=== PATIENT | female | born 1995 | race Caucasian/White ===

== ENCOUNTER 2017-06-01 09:19 | Emergency (ER) | payer BC, OTHER ==
[~2017-06-01] VITALS: Ht 167.6 cm; Wt 74.8 kg
[~2017-06-01 09:19] MED LIST: BCPILLS PO
[2017-06-01 09:23] VITALS: TEMP 37; Ht 167.6 cm; Wt 74.8 kg
[2017-06-01] MEDS ORDERED: SODIUM CHLORIDE 0.9% 1000ML 1,000 ML IV STA (09:43)
[2017-06-01 10:13] LABS: BASO % 0.1 %; BASO ABS # 0.01 K/uL (0-0.2); COMPLETE YES; HEMATOCRIT 43.4 % (37-47); IG% 0.2 %; LYMPH % 16.6 %; LYMPH ABS # 1.97 K/uL (1.2-3.4); MEAN CELL VOLUME 89.3 fL (80-100); MEAN CORPUSCULAR HEMOGLOBIN 30.7 pg (25-34); MEAN CORPUSCULAR HGB CONC 34.3 g/dl (32-36); MEAN PLATELET VOLUME 9.8 fL (7.4-10.4); NEUT % 77.1 %; PLATELET COUNT 276 K/uL (130-400); RED BLOOD COUNT 4.86 M/uL (4.2-5.4)
[2017-06-01 10:24] LABS: BUN/CREATININE RATIO 10.4 (10-20); CALCIUM 9.3 mg/dl (8.5-10.1); CREATININE 0.89 mg/dl (0.60-1.20); POTASSIUM 3.4 mmol/L (3.5-5.1)
--- NOTE | 2017-06-01 10:35 | DIAGNOSTIC IMAGING REPORT ---
RENAL ULTRASOUND CLINICAL HISTORY: Right flank pain. Evaluate for hydronephrosis. COMPARISON STUDY: None. TECHNIQUE: Sonography of the kidneys and the urinary bladder was performed. FINDINGS: The right kidney measures 11 x 3.5 x 5.8 cm and the left measures 11.4 x 5 x 4 cm. There is no hydronephrosis. No masses or calculi are identified by sonography. Renal echogenicity, size and cortical thickness are normal. Both ureteral jets are identified. IMPRESSION: Normal renal ultrasound. No hydronephrosis. Electronically signed by: West Willett M.D. 06/01/2017 10:33 AM Dictated Date/Time: 06/01/2017 10:33 AM
[2017-06-01] MEDS ORDERED: KETOROLAC TROMETHAMINE 30 MG/ML VIAL IV STA (10:43)
[2017-06-01 10:47] LABS: URINE APPEARANCE CLEAR (CLEAR); URINE BILIRUBIN NEG (NEG); URINE COLOR YELLOW; URINE EPITHELIAL CELL AUTO 20-30 /lpf (0-5); URINE NITRITE NEG (NEG); URINE PH 7.5 (4.5-7.5); UROBILINOGEN NEG (NEG)
[2017-06-01 10:57] LABS: MANUAL MICROSCOPIC REQUIRED? NO; REVIEW REQ? NO; SULFASALICYLIC ACID NEG (NEG)
[2017-06-01] MEDS ORDERED: CIPROFLOXACIN 500 MG TAB PO STA (11:27)
[2017-06-01] MEDS ORDERED: CIPR-255 PO (11:36)
[2017-06-01 12:02] VITALS: BP 122/76; PULSE 78; O2SAT 99
--- NOTE | 2017-06-01 14:27 | EMERGENCY ROOM VISIT NOTE ---
History Report prepared by Cassidy: Karina Elliott Under the Supervision of: Dr. Héctor Pak M.D. First contact with patient: 09:35 Chief Complaint: URINARY SYMPTOMS Stated Complaint: KIDNEY PAIN Nursing Triage Summary: triage note: pt reports right lower back pain since 299. "i had chills this morning." pt reports "i am going to the bathroom a lot, it feels like i have to go a lot. " pt reports hx of kidney infection "a few years ago and i was treated for a bladder infection in march too." History of Present Illness The patient is a 21 year old female who presents to the Emergency Room with complaints of persistent right flank pain starting 299. The pain woke her from sleep. She describes the pain as sharp and states that she is having kidney pain. She has pain while she is sitting still, but the pain worsens with movement. The pain does not wrap around her side to the front. She reports urinary frequency, but denies dysuria and hematuria. She had some chills and nausea this morning. She denies any vomiting, fever, vaginal discharge, vaginal bleeding. She has had a kidney infection before and states that the pain is similar, but notes that with her previous kidney infection she had a fever unlike today. She has never had a kidney stone, but she has a family history of kidney stones in her mother. She denies any chance of . Source of History: patient Onset: 299 Position: other (right flank) Quality: sharp Timing: other (persistent) Modifying Factors (Worsening): movement Associated Symptoms: + chills, + nausea, No fevers, No vomiting Note: Pt reports urinary frequency. Pt denies hematuria, dysuria, vaginal discharge, vaginal bleeding. Review of Systems See HPI for pertinent positives & negatives. A total of 10 systems reviewed and were otherwise negative. Past Medical & Surgical Medical Problems: (1) No pertinent past surgical history (2) Urinary tract infection Family History Cancer Diabetes mellitus Hypertension Kidney stones Social History Smoking Status: Current Every Day Smoker Alcohol Use: occasionally Housing Status: lives with family Occupation Status: employed Current/Historical Medications Scheduled Control Pills ( Control Pills), 1 TAB PO DAILY Ciprofloxacin Hcl (Cipro), 500 MG PO BID Allergies Coded Allergies: No Known Allergies (Unverified , 05/21/14) Physical Exam Vital Signs Date Time Temp Pulse Resp B/P (MAP) Pulse Ox O2 Delivery O2 Flow Rate FiO2 06/01/17 12:02 78 18 122/76 99 06/01/17 11:19 78 20 120/72 100 Room Air 06/01/17 10:41 95 16 132/80 100 Room Air 06/01/17 09:23 37.0 115 18 130/86 98 Room Air Physical Exam Constitutional: Vital signs reviewed. Eyes: Pupils are equal round reactive to light. Conjunctiva are noninjected. ENT: Pharynx is clear without erythema or exudate. Mucous membranes are moist. Neck supple without meningeal signs. Respiratory: Clear to auscultation bilaterally. Breath sounds are equal bilaterally. Cardiovascular: Regular rate and rhythm. No rubs or gallops. GI: Soft, nondistended and nontender. Bowel sounds are present. Musculoskeletal: No peripheral edema. No lower extremity tenderness. Mild right CVA tenderness. Integumentary: No cyanosis. Neurological: The patient is awake and alert. No focal deficits. Psychiatric: Normal affect. Medical Decision & Procedures ER Provider Diagnostic Interpretation: Radiology results as stated below per my review and the radiologist's interpretation: RENAL ULTRASOUND CLINICAL HISTORY: Right flank pain. Evaluate for hydronephrosis. COMPARISON STUDY: None. TECHNIQUE: Sonography of the kidneys and the urinary bladder was performed. FINDINGS: The right kidney measures 11 x 3.5 x 5.8 cm and the left measures 11.4 x 5 x 4 cm. There is no hydronephrosis. No masses or calculi are identified by sonography. Renal echogenicity, size and cortical thickness are normal. Both ureteral jets are identified. IMPRESSION: Normal renal ultrasound. No hydronephrosis. Electronically signed by: West Willett M.D. 06/01/2017 10:33 AM Dictated Date/Time: 06/01/2017 10:33 AM Laboratory Results 06/01/17 10:00 Red Blood Count 4.86, Mean Corpuscular Volume 89.3, Mean Corpuscular Hemoglobin 30.7, Mean Corpuscular Hemoglobin Concent 34.3, Mean Platelet Volume 9.8, Neutrophils (%) (Auto) 77.1, Lymphocytes (%) (Auto) 16.6, Monocytes (%) (Auto) 6.0, Eosinophils (%) (Auto) 0.0, Basophils (%) (Auto) 0.1, Neutrophils # (Auto) 9.19, Lymphocytes # (Auto) 1.97, Monocytes # (Auto) 0.71, Eosinophils # (Auto) 0.00, Basophils # (Auto) 0.01 06/01/17 10:00 Test 06/01/17 09:50 06/01/17 10:00 Urine Color YELLOW Urine Appearance CLEAR (CLEAR) Urine pH 7.5 (4.5-7.5) Urine Specific [place] 1.010 (1.000-1.030) Urine Protein NEG (NEG) Urine Glucose (UA) NEG (NEG) Urine Ketones NEG (NEG) Urine Occult Blood 2+ (NEG) Urine Nitrite NEG (NEG) Urine Bilirubin NEG (NEG) Urine Urobilinogen NEG (NEG) Urine Leukocyte Esterase LARGE (NEG) Urine WBC (Auto) >30 /hpf (0-5) Urine RBC (Auto) 0-4 /hpf (0-4) Urine Hyaline Casts (Auto) 10-30 /lpf (0-5) Urine Epithelial Cells (Auto) 20-30 /lpf (0-5) Urine Bacteria (Auto) 4+ (NEG) Urine Test NEG (NEG) White Blood Count 11.90 K/uL (4.8-10.8) Red Blood Count 4.86 M/uL (4.2-5.4) Hemoglobin 14.9 g/dL (12.0-16.0) Hematocrit 43.4 % (37-47) Mean Corpuscular Volume 89.3 fL (80-100) Mean Corpuscular Hemoglobin 30.7 pg (25-34) Mean Corpuscular Hemoglobin Concent 34.3 g/dl (32-36) Platelet Count 276 K/uL (130-400) Mean Platelet Volume 9.8 fL (7.4-10.4) Neutrophils (%) (Auto) 77.1 % Lymphocytes (%) (Auto) 16.6 % Monocytes (%) (Auto) 6.0 % Eosinophils (%) (Auto) 0.0 % Basophils (%) (Auto) 0.1 % Neutrophils # (Auto) 9.19 K/uL (1.4-6.5) Lymphocytes # (Auto) 1.97 K/uL (1.2-3.4) Monocytes # (Auto) 0.71 K/uL (0.11-0.59) Eosinophils # (Auto) 0.00 K/uL (0-0.5) Basophils # (Auto) 0.01 K/uL (0-0.2) RDW Standard Deviation 38.9 fL (36.4-46.3) RDW Coefficient of Variation 12.1 % (11.5-14.5) Immature Granulocyte % (Auto) 0.2 % Immature Granulocyte # (Auto) 0.02 K/uL (0.00-0.02) Anion Gap 6.0 mmol/L (3-11) Est Creatinine Clear Calc Drug Dose 101.6 ml/min Estimated GFR () 105.9 Estimated GFR (Non- 91.4 BUN/Creatinine Ratio 10.4 (10-20) Calcium Level 9.3 mg/dl (8.5-10.1) Total Bilirubin 0.3 mg/dl (0.2-1) Direct Bilirubin 0.1 mg/dl (0-0.2) Aspartate Amino Transf (AST/SGOT) 12 U/L (15-37) Alanine Aminotransferase (ALT/SGPT) 17 U/L (12-78) Alkaline Phosphatase 70 U/L (45-117) Total Protein 7.7 gm/dl (6.4-8.2) Albumin 3.9 gm/dl (3.4-5.0) Lipase 87 U/L (73-393) Laboratory results as reviewed by me. Medications Administered Medications (Trade) Dose Ordered Sig/Hue Route Start Time Stop Time Status Last Admin Dose Admin Sodium Chloride 1,000 ml @ 999 mls/hr Q1H1M STAT IV 06/01/17 09:43 06/01/17 10:43 DC 06/01/17 09:43 999 MLS/HR Ketorolac Tromethamine (Toradol Inj) 10 mg NOW STAT IV 06/01/17 10:43 06/01/17 10:45 DC 06/01/17 11:16 10 MG Ciprofloxacin (Cipro Tab) 500 mg NOW STAT PO 06/01/17 11:27 06/01/17 11:28 DC 06/01/17 11:51 500 MG ED Course 0939: The patient was evaluated in room B6. A complete history and physical exam was performed. 0943: NSS 1000 ml @ 999 mls/hr IV. 1043: Toradol Inj 10 mg IV. 1127: Ciprofloxacin 500 mg PO. 1135: Upon reevaluation, the patient appeared to have improvement of her symptoms. I discussed aldo's findings with her. She verbalized agreement of the treatment plan. She was discharged home. Medical Decision This is a 21-year-old female who presents with right flank pain. Differential diagnosis includes pyelonephritis, UTI, strain, renal colic, pancreatitis, duodenitis. I did perform a limited focused review of portions of the patient' s old chart on the electronic medical record. The patient has had no recent pertinent visits to this hospital. I did evaluate the patient as noted above. IV access was established. I did order and personally review the patient's urinalysis and chest x-ray as described above. There is obvious infection. A urine culture was sent. The patient was treated with Cipro. I did order and review the patient's blood work as noted in the electronic medical record. Her white blood cell count is slightly elevated. I did order an ultrasound of the kidneys. I did review the images myself as well as the radiology report as described above. There is no evidence of kidney stone or hydronephrosis. I did treat patient with Toradol IV and normal saline IV. I did discuss the test results with her. I did recommend close follow up with her doctor for further evaluation. I did discharge her with a ten-day prescription for Cipro. Medication Reconcilliation Current Medication List: was personally reviewed by me Blood Pressure Screening Patient's blood pressure: Elevated blood pressure Blood pressure disposition: Elevated BP felt to be situational Impression Primary Impression: Pyelonephritis Scribe Attestation The scribe's documentation has been prepared under my direct and personally reviewed by me in its entirety. I confirm that the note above accurately reflects all work, treatment, procedures, and medical decision making performed by me. Departure Information Dispostion Home / Self-Care Prescriptions Ciprofloxacin Hcl (CIPRO) 500 Mg Tab 500 MG PO BID, #20 TAB Prov: Héctor Pak M.D. 06/01/17 Referrals Ulysses Pierre M.D. (PCP) Forms HOME CARE DOCUMENTATION FORM, IMPORTANT VISIT INFORMATION Patient Instructions My [facility], Pyelonephritis Dc Additional Instructions You have been examined and treated today on an emergency basis only. This is not a substitute for, or an effort to provide, complete comprehensive medical care. It is impossible to recognize and treat all injuries or illnesses in a single emergency department visit. It is therefore important that you follow up closely with your physician. Call as soon as possible for an appointment. Return for worsening symptoms or if you develop fever, vomiting, or any other concerning symptoms.
--- NOTE | 2017-06-03 12:00 | Pharmacy Progress Note ---
ED Pharmacist Culture FollowUp Date of Service: Jun 03, 2017. Patient was sent home with a prescription for ciprofloxacin, which should cover the E. coli growing from the patient's urine culture.
== END 2017-06-01 12:10 | disposition home or self-care (01) ==
LOC: C.EDB 09:22
DX: N12 Tubulo-interstitial nephritis, not specified as acute or chronic (principal); F17.200 Nicotine dependence, unspecified, uncomplicated; Z79.3 Long term (current) use of hormonal contraceptives; Z83.3 Family history of diabetes mellitus; Z82.49 Family history of ischemic heart disease and other diseases of the circulatory system; Z84.1 Family history of disorders of kidney and ureter

== ENCOUNTER 2018-03-07 14:47 | Emergency (ER) | payer OTHER ==
[~2018-03-07] VITALS: Ht 167.6 cm; Wt 74.2 kg
[~2018-03-07 14:47] MED LIST changes: +CIPR-255 PO
[2018-03-07 14:48] VITALS: TEMP 36.9
[2018-03-07 14:50] VITALS: O2SAT 100
[2018-03-07] MEDS ORDERED: LORAZEPAM 1 MG TAB PO STA (15:08)
[2018-03-07] MEDS ORDERED: ALBUT/IPRATROP 3MG/0.5MG NEB 3 ML VIAL INH STA (15:08)
--- NOTE | 2018-03-07 15:09 | EMERGENCY ROOM VISIT NOTE ---
History Report prepared by Cassidy: Fátima Ramirez Under the Supervision of: Dr. Aleksandr Danielson M.D. 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 Positive nausea. Negative cough, fevers, chills, vomiting, leg swelling, recent long car or plane travel, recent foreign travel. She states she was simply riding in the car when her chest pain suddenly began. Her chest pain is resolved and she has never had an episode like this before. She notes her heart was fluttering and racing and her legs began cramping and tensing. She states she is trying to buy a home but denies any other stresses. Her LNMP was 2 weeks ago. She is a current smoker. The patient states she was recently seen at the ED as an outpatient for a kidney infection. 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 A total of ten systems were reviewed and were otherwise negative. Past Medical & Surgical Medical Problems: (1) Heart murmur (2) No pertinent past surgical history (3) Urinary tract infection Family History Cancer Diabetes mellitus Hypertension Kidney stones Social History Smoking Status: Current Every Day Smoker Alcohol Use: occasionally Housing Status: lives with family Occupation Status: employed Current/Historical Medications Scheduled Control Pills ( Control Pills), 1 TAB PO QPM Scheduled PRN Hydroxyzine Hcl (Atarax), 25 MG PO TID PRN for Anxiety Allergies Coded Allergies: No Known Allergies (Unverified , 03/07/18) Physical Exam Vital Signs Date Time Temp Pulse Resp B/P (MAP) Pulse Ox O2 Delivery O2 Flow Rate FiO2 03/07/18 17:53 86 15 111/65 99 Room Air 03/07/18 16:55 88 17 128/77 100 Room Air 03/07/18 15:27 Room Air 03/07/18 15:12 107 03/07/18 14:50 100 Nasal Cannula 2.0 03/07/18 14:50 100 Nasal Cannula 2.0 03/07/18 14:48 36.9 145 28 152/89 98 Room Air Physical Exam GENERAL: Awake, alert, well-appearing, tearful, in mild distress HENT: Normocephalic, atraumatic. EYES: Normal conjunctiva. Sclera non-icteric. PERRL. No anisocoria. NECK: Supple. No nuchal rigidity. FROM. RESPIRATORY: CTAB, no rhonchi, wheezing, crackles CARDIAC: Tachycardic but regular, no MRG ABDOMEN: Soft, NTND, BS+ MSK: No chest wall TTP, no LE edema. Negative Homans's sign NEURO: GCS 15, CN 2-12 intact, moves all 4s on command SKIN: No rash or jaundice noted. Medical Decision & Procedures ER Provider Diagnostic Interpretation: Radiology results as stated below per my review and radiologist interpretation: SINGLE VIEW CHEST CLINICAL HISTORY: Dyspnea. FINDINGS: An AP, portable, upright chest radiograph is obtained. No prior studies are available for comparison at the time of dictation. The cardiomediastinal silhouette is unremarkable. The lungs and pleural spaces are clear. No pneumothorax is seen. The bony thorax is grossly intact. IMPRESSION: No active disease in the chest. Electronically signed by: Freedom Neely M.D. 03/07/2018 3:28 PM Laboratory Results 03/07/18 15:15 Red Blood Count 4.83, Mean Corpuscular Volume 87.0, Mean Corpuscular Hemoglobin 30.6, Mean Corpuscular Hemoglobin Concent 35.2, Mean Platelet Volume 9.8, Neutrophils (%) (Auto) 61.8, Lymphocytes (%) (Auto) 33.3, Monocytes (%) (Auto) 4.1, Eosinophils (%) (Auto) 0.5, Basophils (%) (Auto) 0.1, Neutrophils # (Auto) 7.62, Lymphocytes # (Auto) 4.11, Monocytes # (Auto) 0.51, Eosinophils # (Auto) 0.06, Basophils # (Auto) 0.01 03/07/18 15:15 Test 03/07/18 15:15 White Blood Count 12.33 K/uL (4.8-10.8) Red Blood Count 4.83 M/uL (4.2-5.4) Hemoglobin 14.8 g/dL (12.0-16.0) Hematocrit 42.0 % (37-47) Mean Corpuscular Volume 87.0 fL (80-100) Mean Corpuscular Hemoglobin 30.6 pg (25-34) Mean Corpuscular Hemoglobin Concent 35.2 g/dl (32-36) Platelet Count 355 K/uL (130-400) Mean Platelet Volume 9.8 fL (7.4-10.4) Neutrophils (%) (Auto) 61.8 % Lymphocytes (%) (Auto) 33.3 % Monocytes (%) (Auto) 4.1 % Eosinophils (%) (Auto) 0.5 % Basophils (%) (Auto) 0.1 % Neutrophils # (Auto) 7.62 K/uL (1.4-6.5) Lymphocytes # (Auto) 4.11 K/uL (1.2-3.4) Monocytes # (Auto) 0.51 K/uL (0.11-0.59) Eosinophils # (Auto) 0.06 K/uL (0-0.5) Basophils # (Auto) 0.01 K/uL (0-0.2) RDW Standard Deviation 39.4 fL (36.4-46.3) RDW Coefficient of Variation 12.2 % (11.5-14.5) Immature Granulocyte % (Auto) 0.2 % Immature Granulocyte # (Auto) 0.02 K/uL (0.00-0.02) Prothrombin Time 9.7 SECONDS (9.0-12.0) Prothromb Time International Ratio 0.9 (0.9-1.1) Activated Partial Thromboplast Time 23.2 SECONDS (21.0-31.0) Partial Thromboplastin Ratio 0.9 Anion Gap 12.0 mmol/L (3-11) Est Creatinine Clear Calc Drug Dose 88.5 ml/min Estimated GFR () 90.2 Estimated GFR (Non- 77.9 BUN/Creatinine Ratio 12.0 (10-20) Calcium Level 9.4 mg/dl (8.5-10.1) Troponin I < 0.015 ng/ml (0-0.045) Laboratory results reviewed by me Medications Administered Medications (Trade) Dose Ordered Sig/Hue Route Start Time Stop Time Status Last Admin Dose Admin Albuterol/ Ipratropium (Duoneb) 3 ml NOW STAT INH 03/07/18 15:08 03/07/18 15:10 DC 03/07/18 15:40 3 ML Sodium Chloride 1,000 ml @ 999 mls/hr Q1H1M STAT IV 03/07/18 16:39 03/07/18 17:39 DC 03/07/18 16:45 999 MLS/HR Miscellaneous Information (Nursing Verbal Med Order) 1 ea ONE ONCE N/A 03/07/18 16:45 03/07/18 16:46 DC 03/07/18 16:52 1 EA Lorazepam (Ativan Tab) 0.5 mg STK-MED ONCE .ROUTE 03/07/18 16:48 03/07/18 16:49 DC 03/07/18 16:51 0.5 MG ECG Per My Interpretation Indication: SOB/dyspnea Rate (beats per minute): 93 Rhythm: normal sinus Findings: other (normal intervals, right axis deviation, no STS changes or TWI) ED Course 1500: The patient was evaluated in room C8. A complete history and physical exam was performed. 1625: I reevaluated the patient at this time. I also performed a bedside ultrasound at this time and there were no significant findings. 1800: I reevaluated the patient. Discussed results and discharge instructions: She verbalized understanding and agreement. The patient is ready for discharge. 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 Positive nausea. Negative cough, fevers, chills, vomiting, leg swelling, recent long car or plane travel, recent foreign travel. Nursing notes reviewed. Ancillary studies and prior records reviewed. Differential diagnosis: Etiologies such as cardiac ischemia, aortic dissection, pulmonary embolism, pneumonia, pneumothorax, musculoskeletal, infections, pericarditis, myocarditis , esophageal rupture, gastrointestinal, as well as others were entertained. She was seen and evaluated the bedside. Patient was complaining of some chest pain and palpitations ongoing 1 hour prior to arrival. Patient states she was driving. No exertional symptoms. Patient denies any infectious symptoms. Patient is a smoker and does use oral contraceptives. Patient denies any calf pain or lower extremity swelling. Patient did have blood work completed along with an EKG, troponin, chest x-ray. Patient's chest x-ray was clear. No evidence of consolidation or pleural effusion. Patient's EKG did show some right axis deviation and borderline tachycardia. The patient did not show evidence of other right-sided heart strain like T-wave inversions in the anterior leads. Patient's blood work did not show any anemia. Patient has normal white blood cell count. Normal kidney function. The patient did have some intermittent tachycardia. I did perform a bedside ultrasound which showed good squeeze and no pericardial effusion. The patient did not have any septal bowing indicative of very high right-sided pressures i.e. pulmonary disease, pulmonary hypertension, or disease. The patient's IVC was virtually collapsible with inspiration. This leads me to believe that the patient is likely dehydrated and that this played a part into her tachycardia. The patient did receive IV fluids as well as some Ativan as I thought that this may be more related to some anxiety and dehydration. Troponins negative. No ischemic change no overt arrhythmia. The patient did have some mild hyperkalemia. Patient was informed of this and was told to increases in her diet. After reassessment after given IV fluids as well as the Ativan the patient was feeling much improved. Patient was given some hydroxyzine for home. Heart score less than 4 less likely ACS. The patient is PE RC positive but her wells score is 1.5 less likely PE and in light of patient's collapsible IVC and no evidence of any right-sided heart strain on her bedside echocardiogram. Also the patient's symptoms improved with IV fluids and Ativan. Patient was deemed suitable for outpatient follow-up and treatment at this time. Patient was given strict follow-up, discharge, and return precautions. All questions were answered. Patient was deemed suitable for outpatient follow-up at this time. Patient agreed with the plan of care and was safely discharged home. Medication Reconcilliation Current Medication List: was personally reviewed by me Blood Pressure Screening Patient's blood pressure: Elevated blood pressure Blood pressure disposition: Elevated BP felt to be situational Impression Primary Impression: SOB (shortness of breath) on exertion Additional Impressions: Dehydration Panic attack Hypokalemia Scribe Attestation The scribe's documentation has been prepared under my direction and personally reviewed by me in its entirety. I confirm that the note above accurately reflects all work, treatment, procedures, and medical decision making performed by me. Departure Information Dispostion Home / Self-Care Prescriptions Hydroxyzine Hcl (ATARAX) 25 Mg Tab 25 MG PO TID Y for Anxiety, #10 TAB Prov: Aleksandr Danielson M.D. 03/07/18 Referrals Ulysses Pierre M.D. (PCP) Forms HOME CARE DOCUMENTATION FORM, IMPORTANT VISIT INFORMATION, WORK / SCHOOL INSTRUCTIONS Patient Instructions ED Dyspnea Shortness of Breath, My [facility] Additional Instructions Please return to the emergency department if you have worsening or recurrent symptoms not amenable to at-home treatment. Please call for a follow-up appointment with her primary care physician. Please take your medications as prescribed. If you have other concerns and/or complaints please feel free to also call your primary care physician's office or return the ED for further evaluation, management, and treatment. You may take 800 mg Ibuprofen every 6 hours as needed for pain/fever with food unless told by your physician not to take NSAIDs. You may take tylenol 1000 mg every 6 hours as needed for pain/fever unless told by your physician to not take it or have liver problems. You may take motrin and tylenol separately or at the same time. Take your medications as prescribed. You have been examined and treated today on an emergency basis only. This is not a substitute for, or an effort to provide, complete comprehensive medical care. It is impossible to recognize and treat all injuries or illnesses in a single emergency department visit. It is therefore important that you follow up closely with [facility], your PCP, and/or your specialist(s). Call as soon as possible for an appointment. Thank you for your time and consideration. I look forward to speaking with you again soon. Please don't hesitate to call us if you have any questions. Problem Qualifiers
[2018-03-07 15:27] VITALS: Ht 167.6 cm; Wt 74.2 kg
--- NOTE | 2018-03-07 15:29 | DIAGNOSTIC IMAGING REPORT ---
SINGLE VIEW CHEST CLINICAL HISTORY: Dyspnea. FINDINGS: An AP, portable, upright chest radiograph is obtained. No prior studies are available for comparison at the time of dictation. The cardiomediastinal silhouette is unremarkable. The lungs and pleural spaces are clear. No pneumothorax is seen. The bony thorax is grossly intact. IMPRESSION: No active disease in the chest. Electronically signed by: Freedom Neely M.D. 03/07/2018 3:28 PM Dictated Date/Time: 03/07/2018 3:27 PM
[2018-03-07 15:49] LABS: BASO % 0.1 %; BASO ABS # 0.01 K/uL (0-0.2); EOS % 0.5 %; EOS ABS # 0.06 K/uL (0-0.5); HEMOGLOBIN 14.8 g/dL (12.0-16.0); IG# 0.02 K/uL (0.00-0.02); LYMPH % 33.3 %; LYMPH ABS # 4.11 K/uL (1.2-3.4); MEAN CORPUSCULAR HEMOGLOBIN 30.6 pg (25-34); MEAN CORPUSCULAR HGB CONC 35.2 g/dl (32-36); MEAN PLATELET VOLUME 9.8 fL (7.4-10.4); MONO % 4.1 %; MONO ABS # 0.51 K/uL (0.11-0.59); NEUT % 61.8 %; NEUT ABS # 7.62 K/uL (1.4-6.5); PLATELET COUNT 355 K/uL (130-400); RED CELL DISTRIBUTION WIDTH CV 12.2 % (11.5-14.5); RED CELL DISTRIBUTION WIDTH SD 39.4 fL (36.4-46.3); WHITE BLOOD COUNT 12.33 K/uL (4.8-10.8)
[2018-03-07 15:59] LABS: INR 0.9 (0.9-1.1); PTT PATIENT 23.2 SECONDS (21.0-31.0)
[2018-03-07 16:11] LABS: BLOOD UREA NITROGEN 12 mg/dl (7-18); CALCIUM 9.4 mg/dl (8.5-10.1); CARBON DIOXIDE 21 mmol/L (21-32); CREATININE 1.01 mg/dl (0.60-1.20); GLUCOSE 108 mg/dl (70-99); SODIUM 138 mmol/L (136-145)
[2018-03-07] MEDS ORDERED: SODIUM CHLORIDE 0.9% 1000ML 1,000 ML IV STA (16:39)
[2018-03-07] MEDS ORDERED: LORAZEPAM 2 MG/ML 1 ML VIAL IV STA (16:39)
[2018-03-07] MEDS ORDERED: NURSING VERBAL MED ORDER ONE (16:45)
[2018-03-07] MEDS ORDERED: LORAZEPAM 0.5 MG TAB ONE (16:48)
[2018-03-07] MEDS ORDERED: HYDR-3124 PO (17:41)
[2018-03-07 17:53] VITALS: BP 111/65; PULSE 86; O2SAT 99
== END 2018-03-07 18:00 | disposition home or self-care (01) ==
LOC: C.EDB 14:47 → C.EDC 18:00
DX: E86.0 Dehydration (principal); F41.0 Panic disorder [episodic paroxysmal anxiety]; E87.6 Hypokalemia; R06.02 Shortness of breath; F17.200 Nicotine dependence, unspecified, uncomplicated; Z79.3 Long term (current) use of hormonal contraceptives; Z86.79 Personal history of other diseases of the circulatory system

== ENCOUNTER 2024-06-08 07:27 | Inpatient (IN) ==
[2024-06-08] MEDS ORDERED: CALCIUM CARBONATE 500 MG CHEWABLE TAB PO PRN (08:11)
[2024-06-08] MEDS ORDERED: LIDOCAINE 1% LOCAL 20 ML VIAL INFIL PRN (08:11)
[2024-06-08] MEDS ORDERED: ACETAMINOPHEN 325 MG TAB PO PRN (08:11)
[2024-06-08 09:00] LABS: Hematocrit (blood only) 38.3 % (37.0-47.0); Mean Corpuscular Hemoglobin 30.2 pg (25.0-34.0); Mean Corpuscular Hgb Conc 33.9 g/dL (32.0-36.0); Mean Corpuscular Volume 88.9 fL (80.0-100.0); Mean Platelet Volume 10.6 fL (9.4-12.4); Platelet Count 194 K/uL (130-400); RDW Coefficient of Variation 13.2 % (11.5-14.5); Red Blood Count 4.31 M/uL (4.20-5.40); White Blood Count 9.39 K/ul (4.8-10.8)
--- NOTE | 2024-06-08 09:26 | History & Physical Report ---
Date of Service June 08, 2024 Assessment & Plan (1) with 39 completed weeks gestation: Plan: 28-year-old G1, P0 at 39 weeks and 4 days of gestation presenting today for scheduled active labor at term, Vital signs stable afebrile, GBS negative, heart rate reassuring, [place] shows contractions but patient does not feel them, Plan to admit, monitor, labs, Cervidil for cervical ripening, All questions were answered. (2) Anxiety: Admission and Anticipated Discharge Date Admission Date: June 08, 2024 History of Present Illness Primary Care Provider: Ulysses Pierre Patient is a 28-year-old G1, P0 at 39 weeks and 4 days of gestation who was scheduled for induction of labor at term she has no complaints, she denies contraction, leakage of fluid, vaginal bleeding. She reports good movements. Her has been uncomplicated except anxiety for which she sees counselor, has not been on medications. GBS negative Allergies Allergy/AdvReac Type Severity Reaction Status Date / Time No Known Allergies Allergy Verified 06/08/24 09:24 Home Medications Medication Instructions Recorded Confirmed Type [id number]-[id number] 1 mg 1 tab PO DAILY 06/08/24 06/08/24 History tablet Patient History Medical History Anxiety was on lexapro weaned off while Surgical History History of oral surgery Family History Grandfather (Maternal) Diabetes Social History Smoking Status: Former smoker Hx Alcohol Use: No Hx Substance Use: No Preferred Language: Portuguese Certified Technician Required: No Beliefs That Will Affect Care: None marital status: marital status details: Wiley Funez Current Living Situation: Spouse Current Living Situation Comment: lives with current occupational status: employed current occupation: [employer] Feels Safe at Home: Yes Assistive Devices: None ARC TRIMMER History no history of STDs, no history of chlamydia, gonorrhea, herpes Review of Systems as per Subjective / HPI Physical Exam Constitutional: WD/WN, vitals as above Gastrointestinal (Abdomen): normal bowel sounds, soft, nontender, no hepatosplenomegaly Genitourinary: normal external appearance OB Exam Abdomen: + vertex (co nfirmed with bed side US) Manual OB Exam: + cervical dilation (0), + cervical effacement 20% and + station high OB Exam Monitor Tracing: + external uterine monitor used and + category I Lymphatic: US: vertex, AFV adequate, placenta anterior, multile FM's and breathing seen Results & Data Vital Signs (Past 12 Hours) Vital Signs Temp Pulse Resp BP 06/08/24 07:51 36.8 C 18 06/08/24 07:48 120 H 130/85
[2024-06-08] MEDS: DINOPROSTONE 10 MG INSERT PV ONE (10:03)
--- NOTE | 2024-06-08 16:08 | Obstetrical Progress Note ---
Date of Service June 08, 2024 Assessment & Plan Admission and Anticipated Discharge Date Admission Date: June 08, 2024 Subjective Patient is reevaluated. She started to feel contractions, they feel like tightening with mild pain, / No LOF/VB +FM FHR categ I [place] ctxs q 2-4 min Continue to monitor closely Results & Data Vital Signs (Past 12 Hours) Vital Signs Temp Pulse Resp BP 06/08/24 14:31 100 H 133/74 06/08/24 12:03 95 H 143/82 H 06/08/24 12:01 18 06/08/24 12:01 36.9 C 18 06/08/24 07:51 36.8 C 18 06/08/24 07:48 120 H 130/85
[2024-06-08] MEDS: LACTATED RINGER'S 1,000 ML IV PRN (18:37)
[2024-06-08] MEDS: BUTORPHANOL TARTRATE 2 MG/ML VIAL IV PRN (18:37)
[2024-06-08] MEDS: ONDANSETRON INJ 2 MG/ML 2 ML VIAL ONE (20:12)
--- NOTE | 2024-06-09 00:19 | Obstetrical Progress Note ---
Date of Service June 09, 2024 Assessment & Plan Admission and Anticipated Discharge Date Admission Date: June 08, 2024 Subjective Patient took shower and ate dinner after Cervidil was removed at 10 pm last night She feels more intense contractions, pain level 4/10 She took Stadol earlier and it helped for 2 hours but made her nauseous Desires IV Tylenol for pain VSS Afebrile FHR categ I VE; 1/ 50%/ -3, amniotic bag felt [place] ctxs q 3-4 min Discussed the findings and options 1) continue with cervical ripening with PO Cytotec when these contractions will space out 2) Pedro balloon insertion for mechanical dilatation with low dose Oxytocin Patient understands all and desires 2nd option All questions were answered. Results & Data Vital Signs (Past 12 Hours) Vital Signs Temp Pulse Resp BP 06/08/24 22:04 101 H 132/73 06/08/24 19:10 36.8 C 18 06/08/24 18:58 36.8 C 109 H 18 131/81 06/08/24 14:31 100 H 133/74
[2024-06-09] MEDS: ACETAMINOPHEN 1,000 MG/100 ML VIAL IV PRN (00:43)
--- NOTE | 2024-06-09 01:13 | Obstetrical Progress Note ---
Date of Service June 09, 2024 Assessment & Plan Admission and Anticipated Discharge Date Admission Date: June 08, 2024 Subjective Patient is ready for Pedro ballon She received IV Tylenol and Zofran She has h/o anxiety and has not been on meds since she had been , used to be on Lexapro She sees counselor regularly every week She desires Benadryl to sleep Speculum was placed in vagina, cervix was visualized, cleaned with betadine sticks Pedro tip was inserted and inflated with 35 ml of sterile water, attached to medial thigh with minimal tension Patient tolerated the procedure well. Results & Data Vital Signs (Past 12 Hours) Vital Signs Temp Pulse Resp BP 06/09/24 00:54 99 H 134/78 06/08/24 22:04 101 H 132/73 06/08/24 19:10 36.8 C 18 06/08/24 18:58 36.8 C 109 H 18 131/81 06/08/24 14:31 100 H 133/74
[2024-06-09] MEDS: FLUCONAZOLE 50 MG TAB PO ONE (01:18)
[2024-06-09] MEDS: diphenhydrAMINE 50 MG/ML VIAL IV STA (01:20)
[2024-06-09] MEDS ORDERED: NALOXONE HCL 1 MG in SODIUM CHLORIDE 0.9% 1,000 ML IV PRN (02:05)
[2024-06-09] MEDS ORDERED: ePHEDrine sulfate 50 MG/ML AMP IV PRN (02:05)
[2024-06-09] MEDS ORDERED: ROPIVACAINE 0.5% PF 5 MG/ML 20 ML VIAL EPI PRN (02:05)
[2024-06-09] MEDS ORDERED: NALOXONE HCL 0.4 MG/1 ML VIAL/CARP IV PRN (02:05)
[2024-06-09] MEDS ORDERED: diphenhydrAMINE 50 MG/ML VIAL IV PRN (02:05)
[2024-06-09] MEDS ORDERED: LIDOCAINE 2% MPF LOCAL 5 ML VIAL EPI PRN (02:05)
[2024-06-09] MEDS ORDERED: ONDANSETRON INJ 2 MG/ML 2 ML VIAL IV PRN (02:05)
[2024-06-09] MEDS ORDERED: NALBUPHINE HCL 5 MG in SYRINGE 0 ML IV PRN (02:05)
[2024-06-09] MEDS ORDERED: SODIUM CHLORIDE 0.9% PF INJ 10 ML VIAL EPI PRN (02:05)
--- NOTE | 2024-06-09 02:07 | Anesthesiology Consultation ---
Date of Service June 09, 2024 Assessment & Plan (1) Encounter for pre-operative examination: Chart Review Chart Review: Patient NOT seen in Pre Admission Testing and Acceptable Risk for Labor Epidural Consults Requested none History Height/Weight Height: 5 ft 6 in Weight: 98.883 kg Allergies Allergy/AdvReac Type Severity Reaction Status Date / Time No Known Allergies Allergy Verified 06/08/24 09:24 Medications Home Medications Medication Instructions Recorded Confirmed Last Taken artfqabu-[id number]-Hi-FA 1 mg 1 tab PO DAILY 06/08/24 06/08/24 Unknown tablet Active Medications Generic Name Dose Route Start Last Admin Trade Name Freq PRN Reason Stop Dose Admin Butorphanol Tartrate 1 mg 06/08/24 10:05 06/08/24 18:37 Butorphanol Tartrate 2 Mg/Ml Vial IV 07/08/24 10:04 1 mg Q2H PRN Administration Pain Lactated Ringer's 1,000 mls @ 150 mls/hr 06/08/24 08:11 06/09/24 01:35 Lr IV 06/10/24 08:10 150 mls/hr .Q6H40M PRN Administration L&D Protocol Protocol Acetaminophen 1,000 mg in 100 mls @ 400 mls/hr 06/09/24 00:15 06/09/24 00:58 Ofirmev IV 06/12/24 00:14 Infused Q8H PRN Infusion Pain Past Medical History Medical History (Updated 06/09/24 @ 02:07 by Zaheer Martínez MD) Encounter for pre-operative examination Anxiety was on lexapro weaned off while Past Family History Family History Grandfather (Maternal) Diabetes Past Surgical History Surgical History History of oral surgery Social History Smoking Status: Former smoker Hx Alcohol Use: No Hx Substance Use: No substance use type: does not use Physical Exam Vital Signs Last Vital Signs Temp 36.8 C 06/08/24 19:10 Pulse 116 H 06/09/24 02:28 Resp 18 06/09/24 02:00 BP 137/79 06/09/24 02:28 Pulse Ox 96 06/09/24 02:27 Testing Laboratory Results 06/08/24 08:33 Blood Type O Positive 06/08/24 08:33 Antibody Screen NEGATIVE 06/08/24 08:33
[2024-06-09] MEDS: BUPIVACAINE 0.25% PF 30 ML VIAL EPI PRN (02:36)
[2024-06-09] MEDS: LIDOCAINE 2%/EPINEPHRINE 1:200,000 20 ML PF EPI STA (02:36)
[2024-06-09] MEDS: fentaNYL citrate PF 100 MCG/2 ML VIAL EPI PRN (02:37)
[2024-06-09] MEDS: fentANYL 2 MCG/ML BUPIVacaine 0.125%-NSS 100ML BAG EPI PRN (02:37)
[2024-06-09] MEDS: OXYTOCIN 30 UNITS/NSS 30 UNITS/500 ML BAG IV PRN ×2 (03:03→21:12)
[2024-06-09] MEDS: ePHEDrine sulfate 50 MG/ML AMP ONE (05:25)
[2024-06-09] MEDS: BUPIVACAINE 0.25% PF 30 ML VIAL ONE (05:25)
[2024-06-09] MEDS: fentaNYL citrate PF 100 MCG/2 ML VIAL ONE (05:25)
[2024-06-09] MEDS: fentANYL 2 MCG/ML BUPIVacaine 0.125%-NSS 100ML BAG ONE (05:26)
[2024-06-09] MEDS: fentaNYL citrate PF 100 MCG/2 ML VIAL EPI STA (05:26)
[2024-06-09] MEDS: BUPIVACAINE 0.25% PF 30 ML VIAL EPI STA (05:26)
[2024-06-09] MEDS: SODIUM CHLORIDE 0.9% PF INJ 10 ML VIAL EPI STA (05:26)
[2024-06-09] MEDS: LIDOCAINE 2%/EPINEPHRINE 1:200,000 20 ML PF ONE (05:26)
[2024-06-09] MEDS: SODIUM CHLORIDE 0.9% PF INJ 10 ML VIAL ONE (05:26)
[2024-06-09] MEDS: ONDANSETRON INJ 2 MG/ML 2 ML VIAL IV PRN (11:58)
[2024-06-09] MEDS ORDERED: NURSING L&D Epidural Breakthrough Pain Update ONE (18:05)
[2024-06-09] MEDS ORDERED: GENTAMICIN CONSULT ACTIVE PRN (19:02)
[2024-06-09] MEDS ORDERED: AMPICILLIN 2,000 MG in SODIUM CHLORIDE 0.9% 50 ML IV SCH (19:15)
[2024-06-09] MEDS: AMPICILLIN 2,000 MG in SODIUM CHLOR 0.9% MINI-B 100 ML IV SCH (19:48)
[2024-06-09] MEDS: DEXTROSE 5% IV STA (20:25)
[2024-06-09] MEDS: GENTAMICIN SULFATE IV STA (20:25)
[2024-06-09] MEDS: METHYLERGONOVINE MALEATE 0.2 MG/ML AMP IM ONE (20:53)
[2024-06-09] MEDS: miSOPROStoL 200 MCG TAB PR ONE (21:12)
[2024-06-09] MEDS ORDERED: OXYTOCIN 30 UNITS/NSS 30 UNITS/500 ML BAG IV PRN (21:17)
[2024-06-09] MEDS ORDERED: bisacodyL 10 MG SUPP PR PRN (21:17)
[2024-06-09] MEDS ORDERED: ACETAMINOPHEN 325 MG TAB PO PRN (21:17)
[2024-06-09] MEDS ORDERED: HYDROCORTISONE ACETATE 25 MG SUPP PR PRN (21:17)
--- NOTE | 2024-06-09 21:20 | Delivery Summary ---
Vaginal Delivery Summary Date of Service June 09, 2024 Vaginal Delivery Summary DELIVERY NOTE Patient delivered a live in left occiput anterior presentation there was no nuchal cord which was easily reduced. was delivered and placed on mother's abdomen. C clamping was performed. Cord blood is obtained Cord gasses are obtained Meconium is absent Placenta is spontaneously delivered. Placenta appears grossly normal and has 3 vessel cord Inspection of the perineum showed a second-degree midline laceration. Laceration is repaired in layers with 2-0 Vicryl in layers Rectal exam post repair showed good sphincter tone no sutures palpated in the rectum. Quantitative blood loss is 260cc per Infants weight and scores are in the pediatric record Mother and baby are stable in in the recovery
--- NOTE | 2024-06-09 21:29 | Anesthesia Procedure Note ---
Date of Service June 09, 2024 Anesthesia Post Epidural Note Vital Signs Vital Signs: Temp Pulse Resp BP Pulse Ox 99.9 F H 103 H 18 132/62 94 06/09/24 19:35 06/09/24 21:23 06/09/24 19:35 06/09/24 21:23 06/09/24 21:23 Pain Intensity Lower Abdomen: Pain Intensity: 2 Notes Mental Status: alert / awake / arousable and participated in evaluation Nausea / Vomiting: adequately controlled Pain: adequately controlled Airway Patency, RR, SpO2: stable & adequate BP & HR: stable & adequate Hydration State: stable & adequate Neuraxial Anesthesia: was administered and sensory block is resolving Anesthetic Complications: no major complications apparent and Pt Satisfied with anesthetic care Epidural: Removed without complications and With tip intact
[2024-06-09 21:43] LABS: Base Excess Cord Arterial Bld -5.2 mEq/L (-9-1.8); CO2 Cord Arterial Blood 40 mmHg (39.1-73.5); HCO3 Cord Arterial Blood 21 mmol/L (19.7-28.5); Oxygen Sat Cord Arterial Blood 61.1 % (<60); PO2 Cord Arterial Blood 35 mmHg (4.1-31.7); pH Cord Arterial Blood 7.32 (7.1-7.38)
[2024-06-09] MEDS: DIPHTHER/TETAN/PERTUS Vaccine (Tdap, Adol/Adult) 0.5mL IM ONE (21:44)
[2024-06-09] MEDS ORDERED: SODIUM CHLORIDE 0.9% 250 ML IV PRN (22:11)
[2024-06-09] MEDS: IBUPROFEN 600 MG TAB PO PRN (22:49)
[2024-06-09] MEDS: BENZOCAINE 20% SPRY 85 APPLN/85 GM CAN EXT PRN (22:49)
[2024-06-10 06:57] LABS: Hematocrit (blood only) 34.3 % (37.0-47.0); Hemoglobin 11.4 g/dl (12.0-16.0); Mean Corpuscular Hemoglobin 30.2 pg (25.0-34.0); Mean Corpuscular Hgb Conc 33.2 g/dL (32.0-36.0); Mean Platelet Volume 10.7 fL (9.4-12.4); Platelet Count 153 K/uL (130-400); RDW Coefficient of Variation 13.3 % (11.5-14.5); RDW Standard Deviation 43.8 fL (36.4-46.3); Red Blood Count 3.77 M/uL (4.20-5.40); White Blood Count 13.93 K/ul (4.8-10.8)
[2024-06-10] MEDS: PRENATAL VITAMIN 1 TAB PO SCH (07:35)
[2024-06-10] MEDS: DOCUSATE SODIUM 100 MG CAP PO SCH (07:35)
--- NOTE | 2024-06-10 09:43 | Pharmacy Report ---
Pharmacy PK ABX Note - Date of Service June 10, 2024 - Assessment and Plan Assessment 28 year old F receiving gentamicin and ampicillin for treatment of intrapartum chorioamnionitis. Pertinent microbiologic data includes: none. Day # 1 of antimicrobial therapy. Plan Gentamicin * Loading dose: 490 mg IV x 1 * Maintenance dose: 490 mg IV every 24 hours for a single dose * Will obtain levels if continued > 72 hours Pharmacy will continue to follow and will adjust dose/frequency as necessary. Thank you.
--- NOTE | 2024-06-10 10:05 | Obstetrical Progress Note ---
Date of Service June 10, 2024 Assessment & Plan Admission and Anticipated Discharge Date Admission Date: June 08, 2024 OB Progress Note abdomen soft and non tender no calf tenderness ambulating well afebrile on ampicillin and gentamicin vaginal bleeding scant hgb 11.4 wbc 14.000 Results & Data Vital Signs (Past 12 Hours) Vital Signs Temp Pulse Pulse Resp BP BP Pulse Ox 06/10/24 07:35 06/10/24 07:35 36.5 C 87 18 110/71 97 06/10/24 03:30 36.6 C 79 20 127/76 96 06/10/24 00:00 36.8 C 93 H 20 134/81 96 06/09/24 23:13 101 H 143/75 H 06/09/24 23:03 102 H 143/74 H 06/09/24 22:53 96 H 127/70 06/09/24 22:43 98 H 136/80 06/09/24 22:38 96 H 96 06/09/24 22:33 96 06/09/24 22:33 96 H 06/09/24 22:33 96 H 121/70 06/09/24 22:28 93 H 96 06/09/24 22:23 98 06/09/24 22:23 93 H 06/09/24 22:23 90 133/74 06/09/24 22:18 86 95 06/09/24 22:13 89 131/72 95 06/09/24 22:08 93 H 96 O2 Del Method 06/10/24 07:35 Room Air 06/10/24 07:35 Room Air 06/10/24 03:30 Room Air 06/10/24 00:00 Room Air 06/09/24 23:13 06/09/24 23:03 06/09/24 22:53 06/09/24 22:43 06/09/24 22:38 06/09/24 22:33 06/09/24 22:33 06/09/24 22:33 06/09/24 22:28 06/09/24 22:23 06/09/24 22:23 06/09/24 22:23 06/09/24 22:18 06/09/24 22:13 06/09/24 22:08
[2024-06-10] MEDS: bisacodyL 5 MG TABEC PO SCH (19:32)
[2024-06-10] MEDS: GENTAMICIN SULFATE IV SCH (22:30)
[2024-06-10] MEDS: DEXTROSE 5% IV SCH (22:30)
[2024-06-11 06:32] LABS: Hematocrit (blood only) 35.2 % (37.0-47.0); Hemoglobin 11.6 g/dl (12.0-16.0)
--- NOTE | 2024-06-11 08:39 | Obstetrical Progress Note ---
Date of Service June 11, 2024 Subjective Ambulation: ambulating normally Voiding: no voiding problems Passing Gas:: Yes Diet Tolerance:: regular diet Lochia:: Small Feeding Type:: breast feeding doing well Physical Exam Constitutional WD/WN, vitals as above Gastrointestinal (Abdomen) Inspection/Auscultation: abdomen normal to inspection abdomen soft and non-tender fundus firm below U Musculoskeletal Extremities: extremities normal to inspection Skin no rashes, warm and dry Neurologic patellar DTR's 2+ bilat, sensation intact Psychiatric A+Ox3, euthymic affect Results & Data Vital Signs (Past 12 Hours) Vital Signs Temp Pulse Resp BP Pulse Ox O2 Del Method 06/10/24 23:00 36.5 C 75 16 120/74 97 Room Air Laboratory Results 06/08/24 06/09/24 06/09/24 08:33 20:43 20:43 WBC 9.39 RBC 4.31 Hgb 13.0 Hct 38.3 MCV 88.9 MCH 30.2 MCHC 33.9 RDW Std Deviation 43.0 RDW Coeff of Jen 13.2 Plt Count 194 MPV 10.6 Cord ABG pH 7.32 Cord ABG pCO2 40 Cord ABG pO2 35 H Cord ABG HCO3 21 Cord ABG Base Excess -5.2 Cord ABG O2 Sat 61.1 H Cord VBG pH Cancelled Cord VBG pCO2 Cancelled Cord VBG pO2 Cancelled Cord VBG HCO3 Cancelled Cord VBG Base Excess Cancelled Cord VBG O2 Sat Cancelled Barometric Pressure Cancelled Blood Gas Comments PEREIRA Cancelled Treponema pallidum Ab Negative Blood Type O Positive Antibody Screen NEGATIVE Crossmatch See Detail 06/10/24 06/11/24 06:26 06:00 WBC 13.93 H RBC 3.77 L Hgb 11.4 L 11.6 L Hct 34.3 L 35.2 L MCV 91.0 MCH 30.2 MCHC 33.2 RDW Std Deviation 43.8 RDW Coeff of Jen 13.3 Plt Count 153 MPV 10.7 Cord ABG pH Cord ABG pCO2 Cord ABG pO2 Cord ABG HCO3 Cord ABG Base Excess Cord ABG O2 Sat Cord VBG pH Cord VBG pCO2 Cord VBG pO2 Cord VBG HCO3 Cord VBG Base Excess Cord VBG O2 Sat Barometric Pressure Blood Gas Comments Treponema pallidum Ab Blood Type Antibody Screen Crossmatch
[2024-06-11] MEDS ORDERED: Nursing to Pharmacy Communication SCH (17:15)
--- NOTE | 2024-06-11 19:18 | Consultation ---
Date of Consultation June 11, 2024 Assessment & Plan (1) Chest heaviness: (2) with 39 completed weeks gestation: (3) Elevated blood pressure reading: Plan EKG ordered, reviewed and reassuring Obtain CXR, CMP, CK, troponin, LDH, mag OB ordering pre eclampsia specific labs given elevated blood pressures if above work up is negative will obtain CTA chest to r/o PE she does have trace edema and will have a low threshold to give dose of lasix if work up negative as she is net + 2L since admission consider oral ativan as well if above work up negative as pt with prior hx of anxiety Recommend continued hospitalization and observance of chest pain Hypomagnesemia will replace, repeat mag ain a.m. Thank you for this consultation. We will follow the patient with you during their hospital stay. You can reach a member of the [facility] Hospitalist Team 06/05 via hospitalist role on tiger text. A total of 60 minutes was spent coordinating, documenting, and providing care for this patient excluding time spent in the performance of separately billed services. This included personally viewing all current laboratories and imaging studies, medication reconciliation, outpatient chart review, and discussion with specialists. Pt was seen and examined in collaboration with Dr. Gonazlez, please see addendum Supervising Physician Co-Signing Physician Notes Patient is a 28-year-old female with history of anxiety and no other significant past medical history, currently day 2 was consulted for chest pain. Patient states having constant chest heaviness since 6 PM. Chest pain is nonradiating, associated with some dizziness and shortness of breath. She states that leaning forward helps with chest pain. Please review H&P for complete details of her presentation. Currently blood work is pending. Chest x-ray on my interpretation showed no significant volume overload. EKG on my interpretation showed no signs of acute ACS. On exam patient is well-built and nourished, no apparent distress, normocephalic atraumatic, EOMI, normal breath sounds, clear to auscultation, S1-S2, no murmur, trace pedal edema, abdomen soft, nontender, normal bowel sounds, alert, awake, oriented, grossly no focal deficits. Patient is consulted for chest pain. She is noted to have elevated blood pressure likely situational. Will obtain CTA to rule out PE. Will consider echo based on blood work. I personally interviewed and examined at bedside. Patient's care is coordinated with Natalie Michaels PA-C. I have reviewed the advanced practitioner's documentation, and I agree with plan of care. Please refer to the documentation above for details of patient's presentation and for discussion of other issues. I spent a total [id number] coordinating, documenting, and providing care for this patient excluding time spent in the performance of separately billed services. History of Present Illness Requesting Physician: Dr. Rose Reason for Consultation: Chest heaviness Attending Physician: Darrian Bruner MD History of Present Illness This is a 28-year-old female who has significant past medical history of anxiety/panic attacks who is currently admitted on the [facility] floor. Call was received from on-call physician Dr. Rose due to patient complaint of chest pain. she has a day 2 from a spontaneous vaginal delivery that was uncomplicated. She otherwise had an uncomplicated as well. She had no history of hypertension during . Plan was for patient to be discharged to [facility] this evening. At approximately 6 PM she was sitting in bed when she developed a heaviness in the central aspect of her chest. She states this was not painful. She felt as if something was sitting on her chest. It was improved if she leaned forward. She also reports some shortness of breath. She states 2 hours prior to symptoms that she was walking the halls whenever she became slightly winded, but attributed this to being . Up to this point she had been eating and drinking well. She has already moved her bowels. She denies any nausea, vomiting, hemoptysis, dysuria, increased urg ency or frequency with urination. She states that these symptoms mimic her panic attacks; however, she does not feel anxious. Typically she is able to breathe through her panic attacks and calm herself down. Her at bedside agrees. This is her first . She denies prior hx of cardiac disease or family history. Allergies Allergy/AdvReac Type Severity Reaction Status Date / Time No Known Allergies Allergy Verified 06/08/24 09:24 Home Medications Medication Instructions Recorded Confirmed Type csoccujk-rhj-Ir-FA 1 mg 1 tab PO DAILY 06/08/24 06/08/24 History tablet ibuprofen 600 mg tablet 600 mg PO Q6H PRN fever or pain 06/11/24 Rx #30 tabs Patient History Medical History Encounter for pre-operative examination Anxiety was on lexapro weaned off while Surgical History History of oral surgery Family History Grandfather (Maternal) Diabetes Social History Smoking Status: Former smoker Hx Alcohol Use: No Hx Substance Use: No Preferred Language: Danish Media Sales Representative Required: No Beliefs That Will Affect Care: None marital status: marital status details: Wiley Funez Current Living Situation: Spouse Current Living Situation Comment: lives with current occupational status: employed current occupation: [employer] Feels Safe at Home: Yes Safety Concerns: Feels Safe At This Time Assistive Devices: None Review of Systems Review of Systems: All systems reviewed & are unremarkable except as noted in HPI & below Physical Exam Physical Exam: Constitutional: WD/WN, vitals as above, appears acutely ill, NAD, sitting up in bed, pleasant, conversing easily Head: Normocephalic, Atraumatic Eyes: PERRL, conjunctivae normal, anicteric sclerae ENMT: external ear and nose normal, oropharynx normal Neck: trachea midline, no thyromegaly normal visual inspection Respiratory: normal respiratory effort, lungs clear to auscultation, no wheeze, rales, rhonchi. Normal insp/exp effort, no accessory muscle use Cardiovascular: RRR, no murmur, +1 pre tibial edema Vessels: no JVD or carotid bruit Chest: normal inspection of chest Abdomen: normal bowel sounds, soft, nontender, Musculoskeletal: AROM x 4 Skin: no rashes, warm and dry normal turgor Psychiatric: A+Ox3, euthymic affect : deferred Results & Data Vital Signs (Past 12 Hours) Vital Signs Temp Pulse Resp BP Pulse Ox O2 Del Method 06/11/24 18:00 70 18 153/85 H 98 Room Air 06/11/24 16:00 36.7 C 71 18 147/78 H 98 Room Air 06/11/24 08:00 Room Air 06/11/24 08:00 36.6 C 71 20 126/75 98 Room Air Diagnostic Findings CXR independently viewed and interpreted by myself is otherwise normal Medications Administered Current Inpatient Medications Acetaminophen (Acetaminophen 325 Mg Tab) 650 mg PO Q6H PRN PRN Reason: Pain Stop: 07/08/24 08:10 Acetaminophen (Acetaminophen 325 Mg Tab) 650 mg PO Q6H PRN PRN Reason: Pain/SEGOVIA/Fever Stop: 07/09/24 21:16 Benzocaine (Benzocaine 20% [place] 85 Appln/85 Gm Can) 1 appln EXT PRN PRN PRN Reason: Perineal Discomfort Stop: 07/09/24 21:16 Last Admin: 06/09/24 22:49 Dose: 1 appln Bisacodyl (Bisacodyl 10 Mg Supp) 10 mg NM DAILY PRN PRN Reason: No BM on 2nd post- day Stop: 07/09/24 21:16 Butorphanol Tartrate (Butorphanol Tartrate 2 Mg/Ml Vial) 1 mg IV Q2H PRN PRN Reason: Pain Stop: 07/08/24 10:04 Last Admin: 06/08/24 18:37 Dose: 1 mg Calcium Carbonate (Calcium Carbonate 500 Mg Chewable Tab) 500 mg PO Q6H PRN PRN Reason: Indigestion Stop: 07/08/24 08:10 Docusate Sodium (Docusate Sodium 100 Mg Cap) 100 mg PO DAILY@08,21 ASHER Stop: 07/10/24 07:59 Last Admin: 06/11/24 08:12 Dose: 100 mg Hydrocortisone (Hydrocortisone Acetate 25 Mg Supp) 25 mg NM BID PRN PRN Reason: Hemorrhoidal Inflammation Stop: 07/09/24 21:16 Oxytocin (Pitocin 30 Units/Nss) 30 units in 500 mls @ 333.333 mls/hr IV .Q1H30M PRN; Protocol PRN Reason: Bleeding Control Stop: 07/08/24 08:10 Last Titration: 06/09/24 22:44 Dose: Infused Acetaminophen (Ofirmev) 1,000 mg in 100 mls @ 400 mls/hr IV Q8H PRN PRN Reason: Pain Stop: 06/12/24 00:14 Last Infusion: 06/09/24 19:32 Dose: Infused Oxytocin (Pitocin 30 Units/Nss) 30 units in 500 mls @ 333.333 mls/hr IV .Q1H30M PRN; Protocol PRN Reason: Bleeding Control Stop: 07/09/24 21:16 Gentamicin Sulfate 490 mg/ (Dextrose) 112.25 mls @ 100 mls/hr IV Q24H [facility] Stop: 06/20/24 20:59 Last Infusion: 06/11/24 00:26 Dose: Infused Ibuprofen (Ibuprofen 600 Mg Tab) 600 mg PO Q4H PRN PRN Reason: Pain/SEGOVIA/Cramping/Fever Stop: 07/09/24 21:16 Last Admin: 06/11/24 06:04 Dose: 600 mg Lidocaine HCl (Lidocaine 1% Local 20 Ml Vial) 20 ml INFIL ONCE PRN PRN Reason: Perineal/vaginal Repair Stop: 07/08/24 08:10 Miscellaneous Information (Gentamicin Consult Active) 1 each N/A UD PRN PRN Reason: Consult Stop: 07/09/24 19:01 Ondansetron HCl (Ondansetron Inj 2 Mg/Ml 2 Ml Vial) 4 mg IV Q6H PRN PRN Reason: Nausea And Vomiting Stop: 07/09/24 00:48 Last Admin: 06/09/24 17:57 Dose: 4 mg Prenat Multivit/[place]/Iron/Folic Ac ( Vitamin 1 Tab) 1 tab PO DAILY@08 [facility] Stop: 07/10/24 07:59 Last Admin: 06/11/24 08:12 Dose: 1 tab ECG Additional Comments: I have independently reviewed and interpreted patient's admitting EKG which revealed: 61, NSR, t wave inversion in lead v2 but otherwise no concerning ST elevations or q waves
[2024-06-11 19:32] LABS: Albumin Globulin Ratio 1.2 (0.9-2); Albumin Level 3.3 gm/dl (3.4-5.0); BUN Creatinine Ratio 14.5 (10-20); Bilirubin,Total 0.2 mg/dl (0.2-1.0); Calcium 9.8 mg/dl (8.6-10.3); Creatinine Clr Calc Pharmacy 157.4 ml/min; Est GFR (African American) 140.2 ml/min; Globulin 2.8 gm/dl (2.5-4.0); Magnesium 1.4 mg/dl (1.7-2.4); Potassium 3.8 mmol/L (3.5-5.1); Total Protein 6.1 gm/dl (6.0-8.3); Uric Acid 5.1 mg/dl (2.6-7.2)
[2024-06-11 19:37] LABS: Troponin I High Sensitivity 6.1 pg/ml (0-14)
[2024-06-11] MEDS: LORazepam 0.5 MG TAB PO STA (19:41)
--- NOTE | 2024-06-11 19:57 | XRay Report ---
SINGLE VIEW CHEST CLINICAL HISTORY: Atypical chest pain FINDINGS: An AP, portable, upright chest radiograph is compared to study dated 03/07/2019. The cardiom ediastinal silhouette is unremarkable. The lungs and pleural spaces are clear. No pneumothorax is see n. The bony thorax is grossly intact. IMPRESSION: No active disease in the chest. ACT 112: Negative or not required by law. Electronically signed by: Freedom Neely M.D. 06/11/2024 7:55 PM
[2024-06-11] MEDS: OPTIRAY 320 125ml IV ONE (20:04)
[2024-06-11 20:14] LABS: Creatinine Urine Random 18.4 mg/dl; Protein Creatinine Ratio Urine 0.3 (0-0.2); Total Protein Urine Random 4.7 mg/dl (0-11.9)
[2024-06-11] MEDS: MAGNESIUM SULFATE / D5W 1 GM/100 ML BAG IV SCH (20:38)
--- NOTE | 2024-06-11 23:56 | CT Scan Report ---
Exam(s): CTA CHEST IV Amt: 118ml optiray 320 EXAM: CT Angiography Chest With Intravenous Contrast CLINICAL HISTORY: PE. TECHNIQUE: Axial computed tomographic angiography images of the chest with intravenous contrast. MIPS images were created and reviewed. CTDI is 22. 64 mGy and DLP is 702.9 mGy-cm. Automated exposure control was utilized for the study. A dose lowering technique was utilized adhering to the principles of ALARA. MIP reconstructed images were created and reviewed. COMPARISON: Chest radiograph 06/11/2024. FINDINGS: Pulmonary arteries: No pulmonary embolus. Aorta: No acute findings. No thoracic aortic aneurysm. Lungs: Unremarkable. No mass. No consolidation. Pleural space: Unremarkable. No significant effusion. No pneumothorax. Heart: Unremarkable. No cardiomegaly. No significant pericardial effusion. No evidence of RV dysfunction. Bones/joints: No acute fracture. No dislocation. Soft tissues: Unremarkable. Lymph nodes: Unremarkable. No enlarged lymph nodes. IMPRESSION: No pulmonary embolus. Electronically signed by: Abbi Gates MD 06/11/24 23:54 PM
[2024-06-12 06:44] LABS: Magnesium 1.5 mg/dl (1.7-2.4)
[2024-06-12 07:10] LABS: Troponin I High Sensitivity 22.6 pg/ml (0-14)
[2024-06-12 08:21] LABS: Hematocrit (blood only) 31.2 % (37.0-47.0); Hemoglobin 10.7 g/dl (12.0-16.0); Mean Corpuscular Hemoglobin 30.6 pg (25.0-34.0); Mean Corpuscular Hgb Conc 34.3 g/dL (32.0-36.0); Mean Corpuscular Volume 89.1 fL (80.0-100.0); Mean Platelet Volume 10.5 fL (9.4-12.4); Platelet Count 185 K/uL (130-400); RDW Coefficient of Variation 13.2 % (11.5-14.5); RDW Standard Deviation 43.1 fL (36.4-46.3)
[2024-06-12] MEDS: MAGNESIUM SULFATE / D5W 1 GM/100 ML BAG IV SCH (08:21)
[2024-06-12] MEDS: ESCITALOPRAM OXALATE 10 MG TAB PO SCH (08:27)
[2024-06-12 08:49] LABS: BUN Creatinine Ratio 14.5 (10-20); Calcium 8.7 mg/dl (8.6-10.3); Creatinine Clr Calc Pharmacy 157.4 ml/min; Est GFR (African American) 140.2 ml/min; Potassium 3.7 mmol/L (3.5-5.1); Troponin I High Sensitivity 20.4 pg/ml (0-14)
--- NOTE | 2024-06-12 08:58 | Obstetrical Progress Note ---
Date of Service June 12, 2024 Assessment & Plan Admission and Anticipated Discharge Date Admission Date: June 08, 2024 Subjective Patient is seen and examined. She feels better, no complaints. She stayed because of chest heaviness started yesterday evening Medicine has been seeing her Ambulating without dizziness Voiding without difficulty Tolerating regular diet with out N&V Bleeding is minimal No fever/ chills/ CP/ SOB/ N&V/ Leg pain Breast feeding without problems Vital Signs Temp Pulse Resp BP BP Pulse Ox O2 Del Method 06/12/24 03:43 36.9 C 60 16 129/80 98 Room Air 06/11/24 22:51 36.7 C 64 16 135/77 99 Room Air Vital Signs Temp Pulse Resp BP BP Pulse Ox O2 Del Method 06/12/24 03:43 36.9 C 60 16 129/80 98 Room Air 06/11/24 22:51 36.7 C 64 16 135/77 99 Room Air 06/11/24 19:46 36.9 C 60 18 156/89 H 98 Room Air 06/11/24 18:30 60 158/88 H 99 Room Air 06/11/24 18:15 98 H 173/92 H 98 Room Air 06/11/24 18:10 89 20 186/94 H 98 Room Air 06/11/24 18:00 70 18 153/85 H 98 Room Air 06/11/24 16:00 36.7 C 71 18 147/78 H 98 Room Air Intake and Output 06/11/24 06/12/24 06/12/24 22:59 06:59 14:59 Intake Total 100 / 200 100 / 200 Balance 100 / 200 100 / 200 Intake: IV 100 / 200 100 / 200 Magnesium Sulfate / D5w 1 gm In 100 / 200 100 / 200 100 ml @ 50 mls/hr IV Q2H [facility] Rx#:[id number] PE: General: Alert, orientedx3, NAD Abd: soft, NT, fundus firm, below Umbilicus Perineum intact, Lochia rubra minimal Ext; NT, no edema AP: 28 yo s/p , ppd# 3 VSS Afebrile doing well h/o anxiety, starting Lexapro this morning Continue routine care Medicine has been doing work up for Chest heaviness, CT of chest negative for PE, Echo pending All questions were answered D/C home after medicine would clear her Results & Data Vital Signs (Past 12 Hours) Vital Signs Temp Pulse Resp BP BP Pulse Ox O2 Del Method 06/12/24 03:43 36.9 C 60 16 129/80 98 Room Air 06/11/24 22:51 36.7 C 64 16 135/77 99 Room Air
[2024-06-12 10:15] VITALS: O2SAT 99
[2024-06-12] MEDS: FERROUS SULFATE 325 MG TAB PO SCH (10:34)
--- NOTE | 2024-06-12 11:43 | Cardiology Consultation ---
Date of Consultation June 12, 2024 Assessment & Plan (1) Chest heaviness: (2) Elevated blood pressure readin-year-old female, 3 days status post uncomplicated vaginal delivery with epidural had developed transient chest tightness and shortness of breath while walking yesterday. Blood pressures were uncharacteristically high for her for a few hours yesterday, now improved. Urine protein to creatinine ratio minimally elevated. Lungs clear to auscultation. Initial EKG as performed last evening was within normal limits. Although the preliminary computer interpretation raise concerns of an age-indeterminate septal infarction pattern, there is a small R wave noted in lead V2, and I think this is just lead position, and per my interpretation I think the EKG is normal. A repeat tracing has been requested and is pending. High sensitive troponin minimally elevated with flat trend. Echocardiogram performed today revealed normal biventricular systolic function, no regional wall motion abnormalities, mild tricuspid regurgitation without pulmonary pretension, normal left ventricular diastolic function. At present, I think that the workup is reassuring. Question of the small elevation in troponin was related to state and mild transient elevation in her blood pressure. Will await the repeat EKG, if within normal limits, anticipate discharge to home. Addendum: Repeat EKG performed today 06/12/2024 at 12:16 PM reviewed and interpret independently: Normal sinus rhythm 64 bpm, normal EKG. Patient stable from a cardiology perspective for discharge as long as stable from an [employer] perspective. Would recommend her blood pressure is monitored at her upcoming OB follow-up visit and treated accordingly if necessary. History of Present Illness Attending Physician: Darrian Bruner MD History of Present Illness Mrs Funez is a 28 year old female seen in cardiology consultation per the request of Dr Horowitz for the evaluation of chest pain, shortness of breath, and mild elevated in high sensitivity troponin level. Patient's , Wiley, and new baby daughter were in the room during my assessment. Patient underwent vaginal delivery at 39 weeks gestation on 06/09/24. Blood pressures normal through her . Yesterday on 06/11/24 she noted chest heaviness, and shortness of breath while in the hallway. Blood pressure readings were elevated as documented from 1600 to 19:46, highest was 186/93. Three most recent measurements improved , 135/77, 129/80, 138/85. She notes having rested well overnight and feels improved today without any ongoing symptoms. Urinalysis last evening revealed minimally elevated urine protein to creatinine ration of 0.3. EKG performed 06/11/24 reveals normal sinus rhythm at 61 bpm, normal EKG per my interpretation. Allergies Allergy/AdvReac Type Severity Reaction Status Date / Time No Known Allergies Allergy Verified 06/08/24 09:24 Home Medications Medication Instructions Recorded Confirmed Type [id number] 1 mg 1 tab PO DAILY 06/08/24 06/08/24 History tablet ibuprofen 600 mg tablet 600 mg PO Q6H PRN fever or pain 06/11/24 Rx #30 tabs Patient History Medical History Encounter for pre-operative examination Anxiety was on lexapro weaned off while Surgical History History of oral surgery Family History Grandfather (Maternal) Diabetes Social History Smoking Status: Former smoker Hx Alcohol Use: No Hx Substance Use: No Preferred Language: Thai 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 Required: No Beliefs That Will Affect Care: None marital status: marital status details: Wiley Funez Current Living Situation: Spouse Current Living Situation Comment: lives with current occupational status: employed current occupation: [employer] Feels Safe at Home: Yes Safety Concerns: Feels Safe At This Time Assistive Devices: None Review of Systems Review of Systems: All systems reviewed & are unremarkable except as noted in HPI & below Physical Exam Constitutional: WD/WN, vitals as above Respiratory: normal respiratory effort, lungs clear to auscultation Cardiovascular: RRR, no murmur, no edema Gastrointestinal (Abdomen): not examined Neurologic: PERRL, EOMI, accommodation nl, no face palsy, no dysarthria Results & Data Vital Signs (Past 12 Hours) Vital Signs Temp Pulse Resp BP Pulse Ox O2 Del Method 06/12/24 08:00 Room Air 06/12/24 08:00 36.4 C L 74 20 138/85 99 Room Air 06/12/24 03:43 36.9 C 60 16 129/80 98 Room Air Laboratory Results Cardiac Enzymes 06/11/24 06/12/24 06/12/24 Range/Units 18:55 00:33 05:35 AST 25 (13-39) U/L Lactate Dehydrogenase 231 (86-244) U/L Troponin I High Sens 6.1 19.5 H D 22.6 H (0-14) pg/ml 06/12/24 Range/Units 07:56 AST (13-39) U/L Lactate Dehydrogenase (86-244) U/L Troponin I High Sens 20.4 H (0-14) pg/ml CBC 06/12/24 Range/Units 07:56 WBC 7.80 (4.8-10.8) K/ul RBC 3.50 L (4.20-5.40) M/uL Hgb 10.7 L (12.0-16.0) g/dl Hct 31.2 L (37.0-47.0) % Plt Count 185 (130-400) K/uL Comprehensive Metabolic Panel 06/11/24 06/12/24 Range/Units 18:55 07:56 Sodium 141 140 (136-145) mmol/L Potassium 3.8 3.7 (3.5-5.1) mmol/L Chloride 107 104 (98-107) mmol/L Carbon Dioxide 25 29 (21-32) mmol/L BUN 9 9 (6-23) mg/dl Creatinine 0.62 0.62 (0.6-1.2) mg/dl Glucose 99 81 (70-99(Fasting)) mg/dl Calcium 9.8 8.7 (8.6-10.3) mg/dl Direct Bilirubin 0.0 (0-0.2) mg/dl AST 25 (13-39) U/L ALT 15 (7-52) U/L Alkaline Phosphatase 102 (34-104) U/L Total Protein 6.1 (6.0-8.3) gm/dl Albumin 3.3 L (3.4-5.0) gm/dl Intake and Output 06/11/24 06/12/24 06/12/24 22:59 06:59 14:59 Intake Total 100 / 200 100 / 200 100 / 100 Balance 100 / 200 100 / 200 100 / 100 Intake: IV 100 / 200 100 / 200 100 / 100 Magnesium Sulfate / D5w 1 gm In 100 / 200 100 / 200 100 / 100 100 ml @ 50 mls/hr IV Q2H [facility] Rx#:[id number] Diagnostic Findings TTecho 06/12/24: normal myocardial thickness, LVEF 55-60% mild tricuspid regurgitation, the LV diastolic function is normal. No Doppler suggestion of pulmonary HTN. Chest CTA: no pulmonary embolism.
--- NOTE | 2024-06-12 13:12 | Hospitalist Progress Note ---
Date of Service June 12, 2024 Assessment & Plan (1) Chest heaviness: (2) with 39 completed weeks gestation: (3) Elevated blood pressure reading: Plan Patient had chest heaviness yesterday Had uneventful vaginal delivery on 06/09/24 Trop was mildly elevated. 6.1->19.5->22.6->20.4 [address] No ST changes Echo ordered earlier today. Showed normal systolic function, mild TR, normal LV diastolic fxn Cardiology eval noted. No further workup recommended Hypomagnesemia Got repletion yesterday Mg 1.5 today. 2g IV given today I spent a total of 40 minutes coordinating, documenting and providing care for this patient excluding time spent in performance of separately billed services Admission and Anticipated Discharge Date Admission Date: June 08, 2024 Subjective Patient seen and examined Denied any complaints at this time Physical Exam Constitutional: + well hydrated; no acute distress Eyes: PERRL, conjunctivae normal, anicteric sclerae ENMT: external ear and nose normal, oropharynx normal Respiratory: normal respiratory effort, lungs clear to auscultation Cardiovascular: RRR, no murmur, no edema Gastrointestinal (Abdomen): normal bowel sounds, soft, nontender, no hepatosplenomegaly Neurologic: PERRL, EOMI, accommodation nl, no face palsy, no dysarthria Psychiatric: A+Ox3, euthymic affect Results & Data Results & Data Vital Signs (Past 12 Hours) Vital Signs Temp Pulse Resp BP Pulse Ox O2 Del Method 06/12/24 08:00 Room Air 06/12/24 08:00 36.4 C L 74 20 138/85 99 Room Air 06/12/24 03:43 36.9 C 60 16 129/80 98 Room Air Laboratory Results Abnormal lab results 06/11/24 06/11/24 06/12/24 Range/Units 18:55 19:22 00:33 RBC (4.20-5.40) M/uL Hgb (12.0-16.0) g/dl Hct (37.0-47.0) % Magnesium 1.4 L (1.7-2.4) mg/dl Troponin I High Sens 19.5 H D (0-14) pg/ml Albumin 3.3 L (3.4-5.0) gm/dl Protein/Creatinin Ratio 0.3 H (0-0.2) 06/12/24 06/12/24 Range/Units 05:35 07:56 RBC 3.50 L (4.20-5.40) M/uL Hgb 10.7 L (12.0-16.0) g/dl Hct 31.2 L (37.0-47.0) % Magnesium 1.5 L (1.7-2.4) mg/dl Troponin I High Sens 22.6 H 20.4 H (0-14) pg/ml Albumin (3.4-5.0) gm/dl Protein/Creatinin Ratio (0-0.2)
[2024-06-12 13:15] VITALS: PULSE 70; RESP 18; TEMP 98.4
[2024-06-12 13:28] VITALS: BP 135/77
--- NOTE | 2024-06-12 21:56 | Electrocardiogram Report ---
Test Reason : Blood Pressure : */* mmHG Vent. Rate : 61 BPM Atrial Rate : 61 BPM P-R Int : 144 ms QRS Dur : 78 ms QT Int : 396 ms P-R-T Axes : 43 81 37 degrees QTcB Int : 398 ms Normal sinus rhythm When compared with ECG of 07-Mar-2018 15:40, Vent. rate has decreased by 32 bpm Confirmed by Brennon Cotton ([id number]) on 06/12/2024 9:56:21 PM Referred By: Darrian Bruner Confirmed By: Brennon Cotton
--- NOTE | 2024-06-12 21:57 | Electrocardiogram Report ---
Test Reason : Blood Pressure : */* mmHG Vent. Rate : 64 BPM Atrial Rate : 64 BPM P-R Int : 150 ms QRS Dur : 84 ms QT Int : 398 ms P-R-T Axes : 53 89 51 degrees QTcB Int : 410 ms Normal sinus rhythm Normal ECG When compared with ECG of 11-Jun-2024 18:44, No significant change Confirmed by Brennon Cotton ([id number]) on 06/12/2024 9:56:37 PM Referred By: Darrian Bruner Confirmed By: Brennon Cotton
== END 2024-06-12 15:00 | disposition home health service (06) | DRG 807 ==
LOC: 4S1 07:27 → 4E2 06-10 00:23